=== PATIENT | male | born 1975 | race Asian ===

== ENCOUNTER 2016-11-28 21:25 | Emergency (ER) | payer BC ==
[~2016-11-28] VITALS: Ht 177.8 cm; Wt 105.2 kg
[2016-11-28 22:09] LABS: PLATELET COUNT 198 K/uL (142-355)
[2016-11-28 22:23] LABS: POTASSIUM 3.4 mmol/L (3.6-5.2); SODIUM 140 mmol/L (136-145)
[2016-11-28 23:01] VITALS: BP 141/90; TEMP 98
== END 2016-11-28 23:03 | disposition home or self-care (01) ==
LOC: ED 21:25
DX: R53.1 Weakness (principal); F12.10 Cannabis abuse, uncomplicated
CPT/HCPCS: 36415; 80053; 80307; 81000; 85027; 99283; G0479

== ENCOUNTER 2018-12-08 09:20 | Outpatient (CLI) | payer BC | END 2018-12-08 19:07 | disposition home or self-care (01) | LOC: CT 09:20 | DX: I10 Essential (primary) hypertension (principal); E78.5 Hyperlipidemia, unspecified; K21.9 Gastro-esophageal reflux disease without esophagitis; R53.83 Other fatigue; Z00.00 Encounter for general adult medical examination without abnormal findings; R53.81 Other malaise; Z79.899 Other long term (current) drug therapy; R10.31 Right lower quadrant pain | CPT/HCPCS: 36415; 82565; 84520 ==

== ENCOUNTER 2020-02-29 14:03 | Outpatient (CLI) | payer BC | END 2020-02-29 23:33 | disposition home or self-care (01) | LOC: CT 14:03 → LABW 14:03 → CT 23:33 | DX: R10.9 Unspecified abdominal pain (principal); R19.7 Diarrhea, unspecified | CPT/HCPCS: 36415; 82565; 84520 ==

== ENCOUNTER 2020-10-30 20:59 | Emergency (ER) | payer BC ==
[~2020-10-30] VITALS: Ht 177.8 cm; Wt 104.3 kg
[2020-10-30 21:53] LABS: PLATELET COUNT 169 K/uL (142-355)
[2020-10-30 22:09] LABS: POTASSIUM 3.7 mmol/L (3.6-5.2)
[2020-10-30 23:20] VITALS: BP 133/83; TEMP 98.7
== END 2020-10-30 23:20 | disposition home or self-care (01) ==
LOC: ED 20:59
PROVIDERS: Hospitalist
DX: R10.84 Generalized abdominal pain (principal)
CPT/HCPCS: 80053; 82150; 83690; 85027; 96374; 96375; 99284; J1885; J2405